=== PATIENT | female | born 1975 ===

== ENCOUNTER 2017-11-17 03:57 | Emergency (ER) | payer OTHER ==
[2017-11-17 04:42] VITALS: BP 109/75; PULSE 84; RESP 16; TEMP 100.1; O2SAT 95
--- NOTE | 2017-11-17 05:58 | ED PDOC ---
HPI: Fever Fever Onset Was: 11/16/17 Recent Sick Contacts: Yes (family members) Symptoms Associated With Fever: Vomiting Additional Comments: 42 yo female with a history of chronic pain presents to the ED complaining of headache, body ache, chills, sore thorat, subjective fever and wheezing, onset of 1 day ago. Patient reports that she was exposed to the flu by her family, and on arrival to the ED vomiting ensued, but the wheezing was resolved. Past Medical History Reviewed: Historical Data, Nursing Documentation, Vital Signs Vital Signs: Last Vital Signs Temp 100.1 F H 11/17/17 04:35 Pulse 84 11/17/17 04:35 Resp 16 11/17/17 04:35 BP 109/75 11/17/17 04:35 Pulse Ox 95 11/17/17 06:58 - Medical History PMH: Asthma, Chronic Pain - Surgical History Surgical History: No Surg Hx - Family History Family History: States: Unknown Family Hx - Social History Current smoker - smoking cessation education provided: No (unknown) Ex-Smoker (has not smoked in the last 12 months): No Alcohol: None Drugs: Denies - Home Medications Home Medications: Ambulatory Orders Medication Instructions Recorded Oseltamivir Phosphate [Tamiflu] 75 mg PO BID 5 Days capsule 11/17/17 - Allergies Allergies/Adverse Reactions: Allergies Allergy/AdvReac Type Severity Reaction Status Date / Time ibuprofen [From Advil] Allergy ANAPHYLAXIS Verified 11/17/17 04:42 Review of Systems ROS Statement: Except As Marked, All Systems Reviewed And Found Negative Constitutional: Positive for: Fever, Chills ENT: Positive for: Throat Pain Respiratory: Positive for: Wheezing Neurological: Positive for: Headache (and body ache) Physical Exam - Reviewed Nursing Documentation Reviewed: Yes Vital Signs Reviewed: Yes - Physical Exam Appears: Positive for: Well, Non-toxic, No Acute Distress Head Exam: Positive for: ATRAUMATIC, NORMAL INSPECTION, NORMOCEPHALIC Skin: Positive for: Normal Color, Warm, DRY Eye Exam: Positive for: EOMI, Normal appearance, PERRL ENT: Positive for: Normal ENT Inspection Neck: Positive for: Normal, Painless ROM Cardiovascular/Chest: Positive for: Regular Rate, Rhythm. Negative for: Murmur Respiratory: Positive for: Normal Breath Sounds. Negative for: Respiratory Distress Gastrointestinal/Abdominal: Positive for: Normal Exam, Soft. Negative for: Tenderness Back: Positive for: Normal Inspection Extremity: Positive for: Normal ROM. Negative for: Pedal Edema, Deformity Neurologic/Psych: Positive for: Alert, Oriented. Negative for: Motor/Sensory Deficits - ECG O2 Sat by Pulse Oximetry: 95 (RA) Pulse Ox Interpretation: Normal Medical Decision Making Medical Decision Making: Time: --05:08 Impression: --Influenza Plan: --toradol 30mg IM --Zofran 8mg PO --Tamiflu 75mg PO Reassess --06:56 Patient reports of improvement of symptoms and is ready for discharge home. Return precautions discussed. Told to f/u w/ PMD. Scribe Attestation: Documented by Saul Curran acting as a scribe for Ru Khan MD. Provider Attestation: All medical record entries made by the Scribe were at my direction and personally dictated by me. I have reviewed the chart and agree that the record accurately reflects my personal performance of the history, physical exam, medical decision making, and the department course for this patient. I have also personally directed, reviewed, and agree with the discharge instructions and disposition. Disposition - Clinical Impression Clinical Impression: Influenza - Patient ED Disposition Is Patient to be Admitted: No - Disposition Referrals: Stephen Rodriges MD [Primary Care Provider] - Disposition: Routine/Home Disposition Time: 06:56 Condition: STABLE Prescriptions: Oseltamivir Phosphate [Tamiflu] 75 mg PO BID 5 Days capsule Instructions: Influenza (ED) Forms: [email or web address] [facility] (Peruvian)
== END 2017-11-17 07:26 | disposition home or self-care (01) ==
LOC: H.ER 03:57
DX: J11.1 Influenza due to unidentified influenza virus with other respiratory manifestations (principal); R11.10 Vomiting, unspecified; J45.909 Unspecified asthma, uncomplicated; G89.29 Other chronic pain; Z88.6 Allergy status to analgesic agent; Z87.891 Personal history of nicotine dependence
CPT/HCPCS: 96372; 99282; J1885

== ENCOUNTER 2018-02-09 03:55 | Emergency (ER) | payer OTHER ==
[2018-02-09 04:15] VITALS: BP 103/70; PULSE 72; TEMP 98.2
[2018-02-09] MEDS ORDERED: Albuterol-Ipratrop 3 mg / 0.5 (3 ml) UD INH STA ×2 (04:21→04:25)
--- NOTE | 2018-02-09 04:24 | ED PDOC ---
HPI: SOB/CHF/COPD Time Seen by Provider: 02/09/18 04:22 Chief Complaint (Nursing): Shortness Of Breath Chief Complaint (Provider): sob History Per: Patient (43 y/o female h/o Asthma here with complaint of sob worse this week secondary to seasonal allergies. Takes rosalina and albuterol without relief of symptoms. Denies any fevers/chills.) Past Medical History Reviewed: Historical Data, Nursing Documentation, Vital Signs Vital Signs: Last Vital Signs Temp 98.2 F 02/09/18 04:02 Pulse 72 02/09/18 04:02 Resp 17 02/09/18 04:35 BP 103/70 02/09/18 04:02 Pulse Ox 98 02/09/18 04:35 - Medical History PMH: Asthma, Chronic Pain - Family History Family History: States: Unknown Family Hx - Home Medications Home Medications: Ambulatory Orders Medication Instructions Recorded Oseltamivir Phosphate [Tamiflu] 75 mg PO BID 5 Days capsule 11/17/17 Cetirizine HCl [Zyrtec] 10 mg PO DAILY #14 tab.rapdis 02/09/18 Fluticasone Nasal [Flonase] 2 spray NS DAILY #1 bottle 02/09/18 predniSONE [predniSONE Tab] 3 tab PO DAILY #12 tab 02/09/18 - Allergies Allergies/Adverse Reactions: Allergies Allergy/AdvReac Type Severity Reaction Status Date / Time ibuprofen [From Advil] Allergy ANAPHYLAXIS Verified 11/17/17 04:42 Review of Systems ROS Statement: Except As Marked, All Systems Reviewed And Found Negative Physical Exam - Reviewed Nursing Documentation Reviewed: Yes Vital Signs Reviewed: Yes - Physical Exam Appears: Positive for: Well, Non-toxic, No Acute Distress Head Exam: Positive for: ATRAUMATIC, NORMAL INSPECTION, NORMOCEPHALIC Skin: Positive for: Normal Color, Warm, DRY Eye Exam: Positive for: EOMI, Normal appearance, PERRL ENT: Positive for: Normal ENT Inspection Neck: Positive for: Normal, Painless ROM Cardiovascular/Chest: Positive for: Regular Rate, Rhythm Respiratory: Positive for: Normal Breath Sounds, Wheezing Gastrointestinal/Abdominal: Positive for: Normal Exam, Soft Back: Positive for: Normal Inspection Extremity: Positive for: Normal ROM Neurologic/Psych: Positive for: Alert, Oriented - ECG O2 Sat by Pulse Oximetry: 97 - Progress ED Course And Treament: PREDNISONE 60 MG X 1 DOSE DUONEB X 2 DOSES RE-EVALUATED AT 17:25AM. LUNGS CLEARED TO AUSCULTATION. PATIENT IN NO RESPIRATORY DISTRESS Disposition - Clinical Impression Clinical Impression: Asthma exacerbation - Patient ED Disposition Is Patient to be Admitted: No - Disposition Referrals: [facility] [Outside] Disposition: Routine/Home Disposition Time: 05:26 Condition: FAIR Prescriptions: Cetirizine HCl [Zyrtec] 10 mg PO DAILY #14 tab.rapdis Fluticasone Nasal [Flonase] 2 spray NS DAILY #1 bottle predniSONE [predniSONE Tab] 3 tab PO DAILY #12 tab Forms: [employer] (Icelandic), [facility] ED School/Work Excuse
[2018-02-09 04:37] VITALS: RESP 17
[2018-02-09 06:22] VITALS: O2SAT 98
== END 2018-02-09 06:24 | disposition home or self-care (01) ==
LOC: H.ER 03:55
DX: J45.901 Unspecified asthma with (acute) exacerbation (principal)

== ENCOUNTER 2018-07-06 12:47 | Emergency (ER) | payer OTHER ==
[2018-07-06 13:11] VITALS: TEMP 97
[2018-07-06] MEDS ORDERED: Sodium Chloride 0.9% 1,000 ML IV STA (13:38)
[2018-07-06] MEDS ORDERED: Iohexol 240 (50 ml) PO ONE (13:38)
--- NOTE | 2018-07-06 13:44 | ED PDOC ---
HPI:Nausea, Vomiting, Diarrhea Time Seen by Provider: 07/06/18 13:28 Chief Complaint (Nursing): GI Problem Chief Complaint (Provider): Nausea, vomiting History Per: Patient History/Exam Limitations: no limitations Onset/Duration Of Symptoms: Days Associated Symptoms: Nausea, Vomiting, Loss Of Appetite. denies: Fever, Chills, Diarrhea, Back Pain, Chest Pain, Constipation, Urinary Symptoms Additional History Per: Patient Additional Complaint(s): 43yo female, otherwise well, comes to ER for evaluation of nausea, and vomiting x 4 days. Patient also reports abdominal discomfort and states she has been unable to tolerate PO intake. Patient reports a mild "lingering" headache, and states it is not the worst of her lifetime. Patient otherwise denies any bodyaches, fever, chills, chest pain, shortness of breath, vision changes, weakness, or numbness. No other complaints. Headaches she gets frequently and is same. PMD: Dr. Rodriges Past Medical History Reviewed: Historical Data, Nursing Documentation, Vital Signs Vital Signs: Last Vital Signs Temp 97 F L 07/06/18 13:09 Pulse 60 07/06/18 13:09 Resp 20 07/06/18 13:09 BP 119/64 07/06/18 13:09 Pulse Ox 100 07/06/18 13:09 - Medical History PMH: Asthma, Migraine, Chronic Pain - Surgical History Surgical History: No Surg Hx - Family History Family History: States: No Known Family Hx - Social History Current smoker - smoking cessation education provided: No Alcohol: None Drugs: Denies - Home Medications Home Medications: Ambulatory Orders Medication Instructions Recorded Nitrofurantoin Macrocrystals 100 mg PO BID #10 cap 07/06/18 [Macrobid] Ondansetron [Zofran] 4 mg PO Q8H PRN #6 tab 07/06/18 - Allergies Allergies/Adverse Reactions: Allergies Allergy/AdvReac Type Severity Reaction Status Date / Time ibuprofen [From Advil] Allergy NAUSEA Verified 07/06/18 13:08 Review of Systems ROS Statement: Except As Marked, All Systems Reviewed And Found Negative Constitutional: Negative for: Fever, Chills Eyes: Negative for: Vision Change ENT: Negative for: Throat Pain Cardiovascular: Negative for: Chest Pain Respiratory: Negative for: Cough, Shortness of Breath Gastrointestinal: Positive for: Nausea, Vomiting, Abdominal Pain. Negative for: Diarrhea, Constipation Genitourinary Female: Negative for: Dysuria Neurological: Positive for: Headache. Negative for: Weakness, Numbness Physical Exam - Reviewed Nursing Documentation Reviewed: Yes Vital Signs Reviewed: Yes - Physical Exam Appears: Positive for: Non-toxic, No Acute Distress Head Exam: Positive for: ATRAUMATIC, NORMAL INSPECTION, NORMOCEPHALIC Skin: Positive for: Normal Color, Warm, DRY Eye Exam: Positive for: EOMI, Normal appearance, PERRL ENT: Positive for: Normal ENT Inspection Neck: Positive for: Normal, Supple Cardiovascular/Chest: Positive for: Regular Rate, Rhythm Respiratory: Positive for: Normal Breath Sounds Gastrointestinal/Abdominal: Positive for: Normal Exam, Soft. Negative for: Tenderness Back: Positive for: Normal Inspection. Negative for: L CVA Tenderness, R CVA Tenderness, Vertebral Tenderness Extremity: Positive for: Normal ROM. Negative for: Pedal Edema Neurologic/Psych: Positive for: Alert, Oriented. Negative for: Motor/Sensory Deficits - Laboratory Results Result Diagrams: 07/06/18 13:52 07/06/18 13:52 Interpretation Of Abn Labs: leuk small - ECG O2 Sat by Pulse Oximetry: 100 (RA) Pulse Ox Interpretation: Normal - CT Scan/US ct Other Rad Studies (CT/US): Read By Radiologist Other Rad Interpretation: no acute - Progress ED Course And Treament: 1832: Stable. Feels much better. AAOx3. Pain free. Tolerated po. Wants to go home. Medical Decision Making Medical Decision Making: Impression: Nausea and vomiting x 4 days Plan: * Labs * IV Fluids * CT A/P * IV Reglan * UA Scribe Attestation: Documented by Lien Esquivel, acting as a scribe for Renea Hubbard MD. Provider Scribe Attestation: All medical record entries made by the Scribe were at my direction and personally dictated by me. I have reviewed the chart and agree that the record accurately reflects my personal performance of the history, physical exam, medical decision making, and the department course for this patient. I have also personally directed, reviewed, and agree with the discharge instructions and disposition. Disposition - Clinical Impression Clinical Impression: Abdominal pain, UTI (urinary tract infection) - Patient ED Disposition Is Patient to be Admitted: No Counseled Patient/Family Regarding: Studies Performed, Diagnosis, Need For Followup - Disposition Referrals: [facility] [Outside] - 07/10/18 Disposition: Routine/Home Disposition Time: 18:33 Condition: STABLE Additional Instructions: Return if not better in 3 days. Prescriptions: Nitrofurantoin Macrocrystals [Macrobid] 100 mg PO BID #10 cap Ondansetron [Zofran] 4 mg PO Q8H PRN #6 tab PRN Reason: Nausea/Vomiting Instructions: Urinary Tract Infections in Adults, Nausea and Vomiting, Adult, Stomach Ache and Stomach Upset Forms: [employer] [facility] (Romanian), [facility] ED School/Work Excuse
[2018-07-06 13:58] LABS: BASO # 0.1 K/uL (0.0-0.2); BASO % 0.8 % (0.0-2.0); EOS # 0.2 K/uL (0.0-0.7); EOS % 2.4 % (0.0-4.0); HEMOGLOBIN 11.4 g/dL (12.0-16.0); LYMPH # 1.8 K/uL (1.0-4.3); MEAN CORPUSCULAR HGB CONC 33.3 g/dL (33.0-37.0); MEAN PLATELET VOLUME 9.6 fl (7.2-11.7); MONO # 0.4 K/uL (0.0-0.8); MONO % 6.9 % (0.0-10.0); NEUT % 61.9 % (50.0-75.0); NRBC % 0.2 % (0.0-0.0); RBC 4.38 Mil/uL (3.80-5.20); RED CELL DISTRIBUTION WIDTH 16.8 % (11.5-14.5); WHITE BLOOD COUNT 6.4 K/uL (4.8-10.8)
[2018-07-06 14:05] LABS: ALB/GLOB RATIO 1.3 (1.0-2.1)
[2018-07-06 14:07] LABS: ALBUMIN 4.2 g/dL (3.5-5.0); ALT/SGPT 27 U/L (9-52); AST/SGOT 24 U/L (14-36); BLOOD UREA NITROGEN 11 mg/dl (7-17); CALCIUM 9.1 mg/dL (8.4-10.2); GFR NON-AFRICAN AMERICAN > 60; LIPASE 53 U/L (23-300)
[2018-07-06] MEDS ORDERED: Iohexol 240 (50 ml) ONE (14:07)
[2018-07-06 15:21] LABS: SQUAMOUS EPITHIAL 4 /hpf (0-5); URINE BILIRUBIN NEGATIVE (NEGATIVE); URINE BLOOD SMALL (NEGATIVE); URINE CLARITY SLIGHTY-CLOUDY (Clear); URINE COLOR YELLOW (YELLOW); URINE GLUCOSE (UA) NEG (Normal); URINE LEUKOCYTE ESTERASE SMALL Leu/uL (Negative); URINE PROTEIN NEGATIVE (NEGATIVE); URINE UROBILINOGEN 0.2-1.0 mg/dL (0.2-1.0)
[2018-07-06] MEDS ORDERED: Iohexol 300 100 ML IJ ONE (16:56)
[2018-07-06] MEDS ORDERED: Sodium Chloride 0.9% 50 ML IV ONE (16:56)
[2018-07-06 17:15] VITALS: RESP 19
--- NOTE | 2018-07-06 18:04 | CT ---
Date of service: 07/06/2018 PROCEDURE: CT Abdomen and Pelvis with contrast HISTORY: abd pain COMPARISON: None. TECHNIQUE: Following oral and intravenous contrast administration, a CT examination of the abdomen and pelvis performed from the domes of the diaphragms to the symphysis pubis with reformatted datasets provided not only axial but also sagittal and coronal series. Coronal and sagittal reformats were generated. contrast dose: Omnipaque 300, 95 cc Radiation dose: Total exam DLP = 826.61 mGy-cm. This CT exam was performed using one or more of the following dose reduction techniques: Automated exposure control, adjustment of the mA and/or kV according to patient size, and/or use of iterative reconstruction technique. FINDINGS: LOWER THORAX: Unremarkable. LIVER: Diminished attenuation is seen throughout the liver without mass or intrahepatic biliary ductal dilatation compatible hepatic steatosis. GALLBLADDER AND BILE DUCTS: Contracted grossly. No radiodense cholelithiasis associated. PANCREAS: Unremarkable. No gross lesion or ductal dilatation. SPLEEN: Homogeneous enhancement without focal mass but upper limits normal overall size at 12.7 cm. ADRENALS: Unremarkable. No mass. KIDNEYS AND URETERS: Unremarkable. No hydronephrosis. No solid mass. VASCULATURE: Unremarkable. No aortic aneurysm. BOWEL: No bowel obstruction appreciable. Opacified large bowel appears remarkable only for limited retained fecal material. No gross mural thickening appreciated throughout. Distal large bowel somewhat limited evaluation due to partial collapse and lack of oral contrast transit. Small bowel is completely collapsed diffusely. Moderate amount retained food distends the stomach. APPENDIX: Normal appendix. PERITONEUM: A tiny umbilical hernia is identified containing only limited peritoneal fat. No bowel involved. No ascites or mesenteric reactive change. No significant lymphadenopathy. LYMPH NODES: Unremarkable. No enlarged lymph nodes. BLADDER: Unremarkable. REPRODUCTIVE: Fibroid uterine changes are identified, partially calcified. BONES: No acute fracture. OTHER FINDINGS: None. IMPRESSION: 1. No apparent acute abdominal or pelvic findings. 2. Hepatic steatosis. 3. Upper limits normal size spleen with no mass or cyst related. 4. Fibroid uterine findings. 5. Tiny umbilical hernia containing only fat.
[2018-07-06 18:46] VITALS: BP 110/78; PULSE 78; O2SAT 98
== END 2018-07-06 18:46 | disposition home or self-care (01) ==
LOC: H.ER 12:47
DX: R10.9 Unspecified abdominal pain (principal); N39.0 Urinary tract infection, site not specified; R51 Headache; D25.9 Leiomyoma of uterus, unspecified; G89.29 Other chronic pain; Z79.899 Other long term (current) drug therapy; Z88.6 Allergy status to analgesic agent
CPT/HCPCS: 74177; 80053; 81003; 81025; 83690; 85025; 96374; 96375; 99283; J2405; J2765; J7030; Q9966; Q9967

== ENCOUNTER 2018-11-30 08:19 | Emergency (ER) | payer OTHER ==
[2018-11-30 08:28] VITALS: RESP 18
--- NOTE | 2018-11-30 09:03 | ED PDOC ---
HPI: Chest Pain Time Seen by Provider: 11/30/18 08:20 Chief Complaint (Nursing): Palpitations Chief Complaint (Provider): Palpitations History Per: Patient History/Exam Limitations: no limitations Onset/Duration Of Symptoms: Days (1), Intermittent Episodes Current Symptoms Are (Timing): Still Present Associated Symptoms: denies: Nausea, Dyspnea, Diaphoresis, Syncope Additional History Per: Patient Additional Complaint(s): 43yo female, with history of depression, comes to ER reporting intermittent episodes of palpitations since yesterday. She also reports some generalized weakness and states she feels the palpitations currently. Patient denies any recent alcohol or drug use; she states she drank coffee, but nothing more than usual. Otherwise, no fever, chills, chest pain, shortness of breath, nausea, vomiting, weakness or numbness. No dizziness, lightheadedness or headache as well. Patient has no additional complaints. PMD: Stephen Rodriges Past Medical History Reviewed: Historical Data, Nursing Documentation, Vital Signs Vital Signs: Last Vital Signs Temp 97.7 F 11/30/18 08:27 Pulse 69 11/30/18 08:27 Resp 18 11/30/18 08:27 BP 125/78 11/30/18 08:27 Pulse Ox 99 11/30/18 08:27 - Medical History PMH: Asthma, Depression, Migraine, Chronic Pain - Surgical History Surgical History: No Surg Hx - Family History Family History: States: No Known Family Hx - Social History Current smoker - smoking cessation education provided: No Alcohol: None Drugs: Denies - Home Medications Home Medications: Ambulatory Orders Medication Instructions Recorded Nitrofurantoin Macrocrystals 100 mg PO BID #10 cap 07/06/18 [Macrobid] Ondansetron [Zofran] 4 mg PO Q8H PRN #6 tab 07/06/18 - Allergies Allergies/Adverse Reactions: Allergies Allergy/AdvReac Type Severity Reaction Status Date / Time ibuprofen [From Advil] Allergy NAUSEA Verified 07/06/18 13:08 Review of Systems ROS Statement: Except As Marked, All Systems Reviewed And Found Negative Constitutional: Positive for: Malaise. Negative for: Fever, Chills Cardiovascular: Positive for: Palpitations. Negative for: Chest Pain, Light Headedness Respiratory: Negative for: Shortness of Breath Gastrointestinal: Negative for: Nausea, Vomiting Neurological: Negative for: Weakness, Numbness, Headache, Dizziness Physical Exam - Reviewed Nursing Documentation Reviewed: Yes Vital Signs Reviewed: Yes - Physical Exam Appears: Positive for: Non-toxic, No Acute Distress Head Exam: Positive for: ATRAUMATIC, NORMAL INSPECTION, NORMOCEPHALIC Skin: Positive for: Normal Color Eye Exam: Positive for: Normal appearance, EOMI, PERRL ENT: Negative for: Pharyngeal Erythema Neck: Positive for: Normal, Painless ROM, Supple Cardiovascular/Chest: Positive for: Regular Rate, Rhythm, Chest Non Tender. Negative for: Murmur, Tachycardia Respiratory: Positive for: Normal Breath Sounds. Negative for: Wheezing, Respiratory Distress Pulses-Radial (L): 2+ Pulses-Radial (R): 2+ Gastrointestinal/Abdominal: Positive for: Normal Exam, Soft. Negative for: Tenderness Back: Positive for: Normal Inspection. Negative for: L CVA Tenderness, R CVA Tenderness Extremity: Positive for: Normal ROM. Negative for: Pedal Edema, Deformity Neurologic/Psych: Positive for: Alert, Oriented. Negative for: Motor/Sensory Deficits - Laboratory Results Result Diagrams: 11/30/18 09:08 11/30/18 09:08 Lab Results: o acute - ECG ECG: Positive for: Viewed By Me ECG Rhythm: Positive for: Normal QRS, Normal ST Segment, Sinus Rhythm O2 Sat by Pulse Oximetry: 99 (RA) Pulse Ox Interpretation: Normal - Progress ED Course And Treament: 1300: Stable. AAOx3. Pain free. Tolerated PO. Fu with pcp. Medical Decision Making Medical Decision Making: Impression: palpitations Plan: -- Labs -- EKG -- IV Fluids Scribe Attestation: Documented by Lien Esquivel acting as a scribe for Jose Hubbard MD Provider Attestation: All medical record entries made by the Scribe were at my direction and personally dictated by me. I have reviewed the chart and agree that the record accurately reflects my personal performance of the history, physical exam, medical decision making, and the department course for this patient. I have also personally directed, reviewed, and agree with the discharge instructions and disposition. Disposition - Clinical Impression Clinical Impression: Palpitations - Patient ED Disposition Is Patient to be Admitted: No Counseled Patient/Family Regarding: Studies Performed, Diagnosis, Need For Followup - Disposition Referrals: [facility] [Outside] - 12/04/18 Disposition: Routine/Home Disposition Time: 13:01 Condition: STABLE Additional Instructions: Return if not better in 3 days. Instructions: Palpitations Forms: [facility] ED School/Work Excuse Print Language: MICRONESIAN
[2018-11-30] MEDS: Sodium Chloride 0.9% 1,000 ML IV STA (09:16)
[2018-11-30 09:35] LABS: BASO % 0.5 % (0.0-2.0); EOS # 0.2 K/uL (0.0-0.7); HEMOGLOBIN 10.7 g/dL (12.0-16.0); LYMPH # 1.1 K/uL (1.0-4.3); LYMPH % 20.3 % (20.0-40.0); MEAN CELL VOLUME 75.9 fl (81.0-99.0); MEAN CORPUSCULAR HEMOGLOBIN 23.8 pg (27.0-31.0); MEAN CORPUSCULAR HGB CONC 31.4 g/dL (33.0-37.0); MONO # 0.4 K/uL (0.0-0.8); MONO % 7.9 % (0.0-10.0); NEUT # 3.8 K/uL (1.8-7.0); NEUT % 68.3 % (50.0-75.0); RBC 4.48 Mil/uL (3.80-5.20); RED CELL DISTRIBUTION WIDTH 17.8 % (11.5-14.5); WHITE BLOOD COUNT 5.6 K/uL (4.8-10.8)
[2018-11-30 09:46] LABS: ALB/GLOB RATIO 1.1 (1.0-2.1); ALBUMIN 3.9 g/dL (3.5-5.0); ALT/SGPT 18 U/L (9-52); AST/SGOT 17 U/L (14-36); BLOOD UREA NITROGEN 10 mg/dl (7-17); CALCIUM 8.8 mg/dL (8.4-10.2); GFR NON-AFRICAN AMERICAN > 60
[2018-11-30 12:28] VITALS: BP 111/60; PULSE 61; TEMP 98
[2018-11-30 13:01] VITALS: O2SAT 99
--- NOTE | 2018-11-30 17:48 | CARD ---
APPROVED REPORT Date of service: 11/30/2018 EKG Measurement Heart [id number] ME P65 [id number] <Conclusion> Normal sinus rhythm Normal Electrocardiogram
== END 2018-11-30 13:50 | disposition home or self-care (01) ==
LOC: H.ER 08:19
DX: R00.2 Palpitations (principal); G89.29 Other chronic pain
CPT/HCPCS: 80053; 81025; 83735; 84100; 84484; 85025; 93005; 96360; 99284; J7030